=== PATIENT | male | born 1950 | race Caucasian/White ===

== ENCOUNTER → 2016-04-06 | Day surgery (SDC) | payer MEDICARE, OTHER ==
[~2016-04-06] VITALS: Ht 188 cm; Wt 106.6 kg
[~2016-04-06] MED LIST: BUPIVACAINE MPF 0.5% 30 ML VIAL. ONE; BYSTOLIC5 MG PO; CEFAZOLIN 1GM IVPB FOR OMNI 50 ML IV PRN; CHOL500016 PO; DEXAMETHASONE SOD PHOS 4 MG/ML VIAL ONE; FENTANYL PF 100 MCG/2 ML VIAL. IV PRN; FENTANYL PF 100 MCG/2 ML VIAL. ONE; HYDR-971 PO; HYDROMORPHONE 2 MG/ML VIAL. IV PRN; IBUP-1060 PO; IV RINGERS,LACTATED 1000ML 1,000 ML IV SCH; LETR2.5T18 PO; LIDOCAINE 1% 1 ML SYRINGE. ID PRN; LIDOCAINE 1% 20 ML VIAL. ONE; LIDOCAINE 2% 100 MG/5 ML DISP.SYRIN. ONE; MIDAZOLAM HCL 2 MG/2 ML VIAL. ONE; MORPHINE SULFATE 2 MG/ML DISP.SYRIN. IV PRN; ONDANSETRON PF 4 MG/2 ML VIAL. IV PRN; PANT40TA5 PO; POVIDONE-IODINE 10% TOPICAL OINTMENT 28GM TUBE. TP ONE; PROCHLORPERAZINE 10 MG/2 ML VIAL. IV PRN; PROPOFOL 40 ML IV ONE
[2016-04-06 12:06] LABS: BASO # 0.1 x10^3/uL (0.0-0.2); BASO % 1 % (0-3); EOS % 1 % (0-3); HEMATOCRIT 48.4 % (39.0-53.0); HEMOGLOBIN 16.2 g/dL (13.0-17.5); LYMPH # 1.7 x10^3/uL (1.0-4.8); LYMPH % 25 % (24-48); MEAN CORPUSCULAR HEMOGLOBIN 31 pg (25-35); MEAN CORPUSCULAR HGB CONC 34 g/dL (31-37); MEAN CORPUSCULAR VOLUME 91 fL (79-100); MONO % 8 % (0-9); NEUT % 65 % (31-73); PLATELET COUNT 126 x10^3/uL (140-400); RED BLOOD COUNT 5.31 x10^6/uL (4.30-5.70); RED CELL DISTRIBUTION WIDTH 13.4 % (11.5-14.5); WHITE BLOOD COUNT 6.6 x10^3/uL (4.0-11.0)
[2016-04-06 12:18] LABS: CALCIUM 9.4 mg/dL (8.5-10.1); CREATININE 1.1 mg/dL (0.7-1.3); POTASSIUM 4.1 mmol/L (3.5-5.1)
[2016-04-06 12:22] LABS: ALBUMIN 4.1 g/dL (3.4-5.0); ALBUMIN/GLOBULIN RATIO 1.5 (1.0-1.7); TOTAL BILIRUBIN 0.8 mg/dL (0.2-1.0); TOTAL PROTEIN 6.9 g/dL (6.4-8.2)
--- NOTE | 2016-04-06 14:20 | PDOC4 ---
PROCEDURE Procedure Surgeon: Yana Pre operative DX: hammer toe 4th and 5th digits left foot Post operative DX: Same Procedure: Arthoplasty 4th and 5th digits left foot Anesthesia: MAC with local Hemostasis: Left ankle tourniquet at 250mmHg EBL 1mL Materials: 0.045 k-wire Intraoperative findings: consistent with DX Patient tolerated anesthesia and procedure well. Post op instructions in chart CHERI CODY DPM Apr 06, 2016 14:20
[2016-04-06 14:59] VITALS: BP 118/68
--- NOTE | 2016-04-06 15:08 | RAD ---
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 There is a surgical pin running longitudinally through the phalanges of the fourth toe. There are mild degenerative changes at scattered interphalangeal joints, the first MTP joint and at the midfoot level. There is no evidence of a retained surgical instrument, needle or radiopaque sponge on these views.
--- NOTE | 2016-04-06 21:28 | OP ---
DATE OF SURGERY: 04/06/2016 PREOPERATIVE DIAGNOSES: Hammer digit syndrome fourth toe, left foot; and hammer digit syndrome fifth toe, left foot. POSTOPERATIVE DIAGNOSES: Hammer digit syndrome fourth toe left foot; and hammer digit syndrome fifth toe left foot. PROCEDURE: Arthroplasty fourth digit, left foot. Arthroplasty fifth digit, left foot. SURGEON: Dr. Hedy Millan. ANESTHESIA: MAC with local. HEMOSTASIS: Left ankle tourniquet at 250 mm. INDICATIONS: The patient is a 65-year-old male, who presented to the office in September 2015 with painful hammer toes with inter-digital lesions fourth and fifth toes. The patient exhausted conservative treatment of frequent debridements and accommodative padding as well as shoe gear modifications. He wished to proceed with surgical correction. The patient was a candidate for an arthroplasty of the fourth and fifth digits of the left foot. Discussed possible risks, benefits, and complications to include flail toe, floppy toe, lack of toe purchase, shortened toe, infection, delayed incision healing, need for further surgery, recurrence, numbness, tingling, burning, chronic pain, DVT, pulmonary embolism. All questions were answered. No guarantees made. The patient signed consent freely and put in chart. DESCRIPTION OF PROCEDURE: The patient was transported to the operating room via cart and placed on the operating room table in supine position. Final verification of the surgery, patient, and limb was performed. IV sedation was given per Anesthesia and 1 gram of IV Ancef preoperatively was given. A digital block was administered to the fourth and fifth digits consisting of a 1:1 mixture of 1% lidocaine plain and 0.5% Marcaine plain. Next, the left foot was then prepped and draped in the usual aseptic manner. Esmarch bandage was used to exsanguinate the left foot and left ankle tourniquet was inflated to 250 mmHg. Attention was directed to the fourth toe where a 2-cm incision was made over the proximal interphalangeal joint. This was deepened down to the joint capsule. Small vessels were cauterized. Transected the extensor tendon at the level of the proximal interphalangeal joint and released the medial and lateral collateral ligaments. Next, a sagittal saw was used to resect the head of the proximal phalanx head, and the wound was then copiously irrigated with sterile saline. A 0.045 K-wire was retrograded through the middle and distal phalanx and then forwarded to the proximal phalanx and C-arm fluoroscopy was utilized to identify the placement of the K-wire. Next, the tendon was reapproximated with 3-0 Vicryl and the skin was reapproximated with 4-0 nylon. Next, attention was directed to the fifth digit where two converging semielliptical incisions were made; starting distal medial, dorsal to lateral, proximal dorsal. These skin incisions were excised in toto and a transverse resection was made at the extensor tendon along the proximal interphalangeal joint as well as released the medial and lateral collateral ligaments. The bone cutter was then used to resect the head of the proximal phalanx. This was smoothed with a david rasp and the wound was copiously irrigated with sterile saline and applied. Reapproximated the skin with 4-0 nylon. The postop injection was given of 0.5 mL which was 2 mg of Decadron to the fourth toe and then 2 mg of Decadron to the fifth toe. The wound was then dressed with Betadine ointment, Adaptic gauze. The K-wire was cut and capped with Jurgan Ball and applied Betadine ointment, Adaptic gauze to the K-wire. The wound was dressed with 4 x 4s, Kerlix bandage, and an Young bandage. The patient is to keep this dressing clean, dry and intact, and to wear surgical shoe to the left foot and to elevate the left lower extremity. He will have postop x-rays taken in the PACU. We will follow up with the patient in one week for wound check. HEDY MILLAN DPM DR: Aaron JOB#: [id number] / [id number]
== END | disposition home or self-care (01) ==
LOC: SURG 10:58
PROVIDERS: ATTEND Podiatrist Foot & Ankle Surgery
DX: M20.42 Other hammer toe(s) (acquired), left foot (principal); Z90.49 Acquired absence of other specified parts of digestive tract; Z72.89 Other problems related to lifestyle; Z98.890 Other specified postprocedural states
CPT/HCPCS: 28285; 36415; 73630; 80053; 85027; J0690; J1100; J2250; J2704; J3010; J3490

== ENCOUNTER → 2019-02-09 | Outpatient (CLI) | payer MEDICARE, OTHER ==
[2016-04-06 14:59] VITALS: BP 118/68
[~2019-02-09] MED LIST changes: -BUPIVACAINE MPF 0.5% 30 ML VIAL. ONE; -CEFAZOLIN 1GM IVPB FOR OMNI 50 ML IV PRN; -DEXAMETHASONE SOD PHOS 4 MG/ML VIAL ONE; +FEMARA2.5 MG PO; -FENTANYL PF 100 MCG/2 ML VIAL. IV PRN; -FENTANYL PF 100 MCG/2 ML VIAL. ONE; +HYDR-3164 PO; -HYDR-971 PO; -HYDROMORPHONE 2 MG/ML VIAL. IV PRN; -IV RINGERS,LACTATED 1000ML 1,000 ML IV SCH; -LETR2.5T18 PO; -LIDOCAINE 1% 1 ML SYRINGE. ID PRN; -LIDOCAINE 1% 20 ML VIAL. ONE; -LIDOCAINE 2% 100 MG/5 ML DISP.SYRIN. ONE; -MIDAZOLAM HCL 2 MG/2 ML VIAL. ONE; -MORPHINE SULFATE 2 MG/ML DISP.SYRIN. IV PRN; -ONDANSETRON PF 4 MG/2 ML VIAL. IV PRN; -PANT40TA5 PO; +PANT40TA77 PO; -POVIDONE-IODINE 10% TOPICAL OINTMENT 28GM TUBE. TP ONE; -PROCHLORPERAZINE 10 MG/2 ML VIAL. IV PRN; -PROPOFOL 40 ML IV ONE
--- NOTE | 2019-02-09 16:58 | PCVCIMAG ---
APPROVED REPORT Study performed: 02/09/2019 14:21:25 Exam: Stress Echocardiogram Indication: Dyspnea, elevated calcium score, palps, htn, fam hx cad Patient Location: Echo lab Stress Nurse: Zenobia Quesada RN Status: routine Ht: 6 ft 2 in HR: 87 bpm BP: 140/84 mmHg Rhythm: NSR Procedure The patient underwent an Exercise Stress Test using the Triston Protocol. Blood pressure, heart rate, and EKG were monitored. An Echocardiogram was performed by accredited pharmacy technician in four stages in quad fashion. At peak stress, four selected images were obtained and placed side by side with resting images for comparison. Stress Test Details Stress Test: Exercise stress testing was performed using a Triston protocol. HR Resting HR: 87 bpmMax Heart Rate (APMHR): 151 bpm Max HR Achieved: 142 bpmTarget HR (85% APMHR): 128 bpm % of APMHR: 94 Recovery HR: 103 bpm HR response to stress: Normal HR response to stress BP Resting BP: 140/84 mmHg Max BP: 162/84 mmHg Recovery BP: 142/78 mmHg BP response to stress: Normal blood pressure response to stress. ECG Resting ECG: Sinus Rhythm Stress ECG: Sinus Rhythm ST Change: nonspecific ST changes Arrhythmia: None Recovery ECG: Sinus Rhythm Recovery ST Change: nonspecific ST changes Recovery Arrhythmia: None Clinical Reason for Termination: Maximal effort Stress Symptoms: Dyspnea Exercise duration: 8 min sec Highest Stage Achieved: Stage 3: 3.4 mph at 14% grade. Exercise capacity: 10.1 METs Overall Exercise Capacity for Age: Normal Scale: Active Angina Score: None Pre-Stress Echo The resting Echocardiogram showed normal left ventricular contractility with an estimated Ejection Fraction of about >55%. Normal wall motion in all segments on baseline images. Post-Stress Echo The stress Echocardiogram showed normal left ventricular contractility with an estimated Ejection Fraction of about 65%. Normal augmentation of wall motion in all segments on post stress images. Clinical No clinical or ECG evidence for ischemia. Conclusion Clinical Response: Non-ischemic Exercise Capacity: Average Stress ECG Response: Non-ischemic Stress Echo Images: Non-ischemic The left ventricle is normal in size and wall thickness in both the rest and stress images. Moderate eccentric anterior directed mitral regurgitation. Normal aortic, pulmonic and tricuspid valves. Other Information Study Quality: Adequate <Conclusion> The left ventricle is normal in size and wall thickness in both the rest and stress images. Moderate eccentric anterior directed mitral regurgitation. Normal aortic, pulmonic and tricuspid valves.
== END | disposition home or self-care (01) ==
LOC: PCVCIMAG 14:28
PROVIDERS: ATTEND Internal Medicine Cardiovascular Disease
DX: I34.0 Nonrheumatic mitral (valve) insufficiency (principal); R06.00 Dyspnea, unspecified; R93.1 Abnormal findings on diagnostic imaging of heart and coronary circulation; I10 Essential (primary) hypertension; Z82.49 Family history of ischemic heart disease and other diseases of the circulatory system
CPT/HCPCS: 93325; 93351